=== PATIENT | male | born 1975 | race Asian ===

== ENCOUNTER 2020-07-31 10:01 | Emergency (ER) | payer OTHER ==
[~2020-07-31] VITALS: Ht 182.9 cm; Wt 76.2 kg
[2020-07-31 10:32] LABS: ABSOLUTE NEUTROPHILS 5.1 thou/uL (1.4-8.2); BASOPHILS 0.3 % (0.0-2.0); EOSINOPHILS 0.1 % (0.0-3.0); HEMATOCRIT 43.5 % (42.0-52.0); HEMOGLOBIN 14.6 gm/dL (14.0-18.0); LYMPHOCYTES 17.3 % (24.0-44.0); MCHC 33.6 g/dL (28.0-37.0); MONOCYTES 13.8 % (1.0-8.0); PLATELET COUNT 177 thou/uL (150-400); POLYS 68.5 % (36.0-66.0); RBC 4.72 mil/uL (4.50-6.00); RDW 15.8 % (10.5-14.5); WBC 7.4 thou/uL (4.0-11.0)
[2020-07-31 11:01] LABS: CALCIUM 10.1 mg/dL (8.5-10.1); CREATININE 0.9 mg/dL (0.7-1.3); POTASSIUM 4.3 mmol/L (3.5-5.1)
[2020-07-31 11:06] LABS: ALBUMIN 4.4 g/dL (3.4-5.0); TOTAL BILIRUBIN 2.6 mg/dL (0.2-1.0); TOTAL PROTEIN 8.2 g/dL (6.4-8.2)
[2020-07-31 11:37] VITALS: BP 161/98
--- NOTE | 2020-07-31 15:00 | EKG ---
[place] [address] [facility] [email or web address] [address] ELECTROCARDIOGRAM REPORT Name: YOHANA LARIOS Room #: DEP [facility] [id number] Admission: 07/31/20 Attend Phys: Discharge: 07/31/20 Date of : 73 Report #: [id number] [facility] ED Test Date: 2020-07-31 Test Time: 11:05:04 Pat Name: YOHANA LARIOS Department: Room: Gender: Emergency Room Clinician: JULEE : 1975 Requested By: Pepe Goyal Order Number: [id number] MD: Jeremy Hdz Measurements Intervals [place] Rate: 82 P: 61 CT: 158 QRS: -45 QRSD: 96 T: 46 QT: 387 QTc: 452 Interpretive Statements Sinus rhythm Left atrial enlargement RSR' in V1 or V2 Baseline wander in lead(s) II,III,aVF No previous ECG available for comparison Electronically Signed On 07-31-2020 15:00:40 CDT by Jeremy Hdz [email or web address] <ELECTRONICALLY SIGNED> By: Jeremy Hdz MD 07/31/20 1500 04 Jeremy Hdz MD /MONIQUE
== END 2020-07-31 12:23 | disposition home or self-care (01) ==
LOC: ER 10:01
PROVIDERS: Emergency Medicine
DX: F10.239 Alcohol dependence with withdrawal, unspecified (principal); R56.9 Unspecified convulsions; Y90.0 Blood alcohol level of less than 20 mg/100 ml